=== PATIENT | female | born 1990 | race Caucasian/White ===

== ENCOUNTER 2020-12-27 15:48 | Outpatient (CLI) | payer OTHER, SELFPAY ==
--- NOTE | ~2020-12-27 | US_ITS ---
EXAMINATION: US pelvic complete w TV DATE: 12/27/2020 16:41 INDICATION: Dysmenorrhea TECHNIQUE: Multiple transabdominal and endovaginal sonographic images of the pelvis were obtained. COMPARISON: None. FINDINGS: The uterus measures 11.0 x 4.9 x 5.0 cm. The endometrial complex measures 8 mm. The right o vary measures 2.7 x 2.7 x 2.1 cm. The left ovary measures 2.3 x 2.5 x 2.7 cm. There is normal vascula r flow in the ovaries. There is no free fluid in the pelvis. IMPRESSION: 1. No sonographic correlate for the patient's symptoms. Reviewed, dictated and finalized at location A.
== END 2020-12-27 15:49 | disposition home or self-care (01) ==
LOC: ANHIMG 15:56
PROVIDERS: PCP Internal Medicine Gastroenterology; Visit Provider Obstetrics & Gynecology
DX: N94.6 Dysmenorrhea, unspecified (principal)
CPT/HCPCS: 76830; 76856

== ENCOUNTER 2021-02-28 13:39 | Emergency (ER) | payer OTHER, SELFPAY ==
[2021-02-28 14:15] VITALS: BP 154/105; PULSE 96; RESP 18; TEMP 36.4; O2SAT 99
--- NOTE | 2021-02-28 16:43 | ED.ALLEREA ---
HPI - Allergic Reaction General Chief complaint: Allergic Reaction Stated complaint: allergic reaction Time Seen by Provider: 02/28/21 15:51 Source: patient Mode of arrival: ambulatory Limitations: no limitations History of Present Illness HPI narrative: Patient is a 30-year-old female who presents with what appears to be multiple insect bites to bilateral arms. Patient reports pruritic. Patient reports symptoms x2 days. She reports that her and family were staying out of town. She reports no other individuals in the family have symptoms and therefore shared multiple different beds. She reports taking Benadryl without relief. She reports seeing PCP and started on a Medrol dose pack in which she had her first dose. Many lesions are pustular prior to eruption. She also is concerned with swelling under her chin. She denies all other complaints at this time. Related Data Home Medications Medication Instructions Recorded Confirmed atorvastatin 02/28/21 02/28/21 fluoxetine mg 02/28/21 glyburide mg 02/28/21 levothyroxine 02/28/21 meloxicam 02/28/21 metformin mg 02/28/21 omeprazole 02/28/21 Allergies Allergy/AdvReac Type Severity Reaction Status Date / Time venlafaxine [From Effexor] Allergy Dyspnea / Verified 02/28/21 15:58 SOB Review of Systems Review of Systems: Narrative: CONSTITUTIONAL: Denies fever, chills, or sweats. EYES: Denies visual changes, redness, or discharge. ENT: Denies rhinorrhea, congestion, sore throat, or otalgia. CARDIOVASCULAR: Denies chest pain, palpitations, or edema. RESPIRATORY: Denies cough or dyspnea. GASTROINTESTINAL: Denies abdominal pain, nausea, vomiting, or diarrhea. GENITOURINARY: Denies dysuria or hematuria. SKIN: Rash to bilateral arms MUSCULOSKELETAL: Denies back pain, joint pain, or myalgia. NEUROLOGIC: Denies headache, numbness, dizziness, or weakness. PSYCHIATRIC: Denies anxiety or depression. [facility] Past Medical History Medical History Depression Prediabetes Sinusitis Surgical History Surgical History H/O tubal ligation H/O: Family History Family History (Updated 02/28/21 @ 16:55 by BRAXTON Solano) Other Arthritis COPD (chronic obstructive pulmonary disease) Diabetes mellitus Hypertension Social History Social History (Updated 02/28/21 @ 16:56 by BRAXTON Solano) Smoking status: Former smoker Alcohol intake: current Alcohol use details: Occasional Substance use: never Living arrangements: with family Gender identity (if verbalized by the patient): Female Exam Narrative: Exam Narrative: GENERAL: Well-appearing, well-nourished, and in no acute distress. HEAD: Normocephalic, atraumatic. EYES: EOMI. No redness or drainage. Conjunctiva are normal. ENT: Mucous membranes pink and moist. CHEST: No respiratory distress. Clear to auscultation. HEART: Regular rate and rhythm. No murmur appreciated. Normal peripheral pulses. GI: Soft, nontender without rebound, or guarding. No distention. Bowel sounds normal in all quadrants. MUSCULOSKELETAL: No bony tenderness. EXTREMITIES: Normal range of motion. No edema. SKIN: Multiple pustular and bullous lesions to bilateral arms. Surrounding erythema. NEURO: No focal deficits. Alert and oriented x3. Gait steady. PSYCH: Normal affect. No signs of depression or anxiety. Course Vital Signs Vital signs: Vital Signs Temperature 36.4 C L 02/28/21 14:15 Pulse Rate 96 02/28/21 14:15 Respiratory Rate 18 02/28/21 14:15 Blood Pressure 154/105 H 02/28/21 14:15 Pulse Oximetry 99 02/28/21 14:15 Temperature 36.4 C L 02/28/21 14:15 Pulse Rate 80 02/28/21 17:15 Respiratory Rate 16 02/28/21 17:15 Blood Pressure 140/88 02/28/21 17:15 Pulse Oximetry 97 02/28/21 17:15 Reviewed-patient is informed that they may have pre-hyp
[2021-02-28 17:15] VITALS: BP 140/88; PULSE 80; RESP 16; O2SAT 97
== END 2021-02-28 17:15 | disposition home or self-care (01) ==
PROVIDERS: Emergency Provider Nurse Practitioner
DX: S40.862A Insect bite (nonvenomous) of left upper arm, initial encounter (principal); S40.861A Insect bite (nonvenomous) of right upper arm, initial encounter; R73.03 Prediabetes; Z79.84 Long term (current) use of oral hypoglycemic drugs; Z87.891 Personal history of nicotine dependence; R03.0 Elevated blood-pressure reading, without diagnosis of hypertension; W57.XXXA Bitten or stung by nonvenomous insect and other nonvenomous arthropods, initial encounter
CPT/HCPCS: 99283

== ENCOUNTER 2023-02-01 08:52 | Outpatient (CLI) | payer OTHER, SELFPAY ==
[2023-02-19 03:12] VITALS: BMI 65.9
--- NOTE | 2023-02-19 03:12 | WPDSLEEPSTUD ---
Sleep Study Date of Study: 02/01/23 Ordering Provider: Vero Ayers Interpreting Physician: Jospehine Ricks MD Sleep Study Type: Polysomnogram Height: 1.65 m Weight: 179.623 kg Body Mass Index: 65.9 Neck Circumference (inches): 20 [place]light: 12 Reason for Sleep Study Hypersomnolence Sleep History Erica Angulo is a 32-year-old female with frequent awakenings from sleep feeling short of breath. She frequently awakens at night with heartburn, belching and coughing. She frequently snores, occasionally loudly enough that others complain. She occasionally has difficulty sleeping with a cold. She rarely gasps for breath at night. She occasionally has breathing problems at night observed by others. She rarely sweats excessively at night or notices her heart pounding or beating irregularly at night. She frequently falls asleep during the day, occasionally involuntarily, never while driving. She rarely has loss of muscle tone with strong emotion. She rarely has daytime difficulties due to excessive sleepiness. She never feels paralyzed on waking or falling asleep, never has vivid dreamlike scenes upon awakening or falling asleep. She never feels afraid to go to sleep. She occasionally has nightmares. She frequently remembers her dreams. She constantly has racing thoughts. She frequently feels sad or depressed. She constantly has anxiety. She frequently has muscular tension. She rarely notices parts of her body jerking. She rarely kicks at night. She does not have crawling or aching feelings in her legs. She does not have any kind of leg pain at night. She occasionally has morning jaw pain. She rarely grinds her teeth during sleep. She frequently is bothered by pain during the day. She is not awakened by pain at night. She occasionally wakes up feeling stiff in the morning with sore achy muscles and pain in the neck and spine. She has headaches and she takes antacids regularly. She has insomnia. Normal bedtime is 2:00 a.m. taking 2 hours to fall asleep. She takes medications prescribed from her doctor to go to sleep but still it takes her 2 hours to fall asleep. She wakes around 9:00 a.m.. She has the same schedule on weekends. She estimates getting 6 hours of sleep at night. She takes naps in the afternoon or evening. A short nap is not refreshing. She is drowsy for 3 hours after waking. She feels better in the evening compared to other times a day. Habits: Cigarettes 1 pack per day. Caffeine 2 servings a day. No alcohol or recreational substances. [facility] Past Medical History Medical History (Updated 02/19/23 @ 03:34 by Josephine Ricks MD) Depression GERD (gastroesophageal reflux disease) Hyperlipidemia PCOS (polycystic ovarian syndrome) Prediabetes Sinusitis Surgical History Surgical History (Updated 02/19/23 @ 03:34 by Josephine Ricks MD) H/O tubal ligation H/O: S/P ACL repair S/P tonsillectomy and adenoidectomy Family History Family History Other Arthritis COPD (chronic obstructive pulmonary disease) Diabetes mellitus Hypertension Social History Social History Smoking status: Former smoker Alcohol intake: current Alcohol use details: Occasional Substance use: never Living arrangements: with family Gender identity (if verbalized by the patient): Female Medications Home Medications Medication Instructions Recorded Confirmed Type atorvastatin 20 mg tablet 02/28/21 02/28/21 History cephalexin 500 mg capsule 500 mg PO QID 10 days #40 caps 02/28/21 Rx fluoxetine 40 mg capsule mg 02/28/21 History glyburide 1.25 mg tablet mg 02/28/21 History levothyroxine 100 mcg tablet 02/28/21 History meloxicam 15 mg tablet 02/28/21 History metformin 500 mg tablet mg 02/28/21 History mupirocin 2 % topical ointment 1 applic topical TID 5 days #15 02/18
== END 2023-02-02 06:52 | disposition home or self-care (01) ==
LOC: ANHCSM 08:53
DX: G47.33 Obstructive sleep apnea (adult) (pediatric) (principal); K21.9 Gastro-esophageal reflux disease without esophagitis; E78.5 Hyperlipidemia, unspecified
CPT/HCPCS: 95810